=== PATIENT | female | born 1965 | race Asian ===

== ENCOUNTER 2017-10-07 08:32 | Day surgery (SDC) | payer OTHER ==
[~2017-10-07] VITALS: Ht 157.5 cm; Wt 61.6 kg
[~2017-10-07 08:32] MED LIST: ACET500; ACETAMINOPHEN-1 EACH PO; ASPI325 PO; BENADRYL25 MG PO; FAMO20 PO; Gas-X80 MG PO; HYDR1TAB94 PO; METPRE4DP PO
== END 2017-10-07 10:30 | disposition home or self-care (01) ==
LOC: ORSCSDS 08:32
PROVIDERS: Surgery
PROC: 0DJD8ZZ Inspection of Lower Intestinal Tract, Via Natural or Artificial Opening Endoscopic (ICD-10-PCS; principal; 2017-10-07 09:45)
DX: Z12.11 Encounter for screening for malignant neoplasm of colon (principal)
CPT/HCPCS: J7120

== ENCOUNTER → 2021-05-15 | Outpatient (CLI) | payer OTHER ==
[2021-05-19 14:10] LABS: HPV 16 Negative (Negative); HPV 18 Negative (Negative); HPV OTHER HR TYPES Negative (Negative)
== END | disposition home or self-care (01) ==
LOC: LAB SHORT 17:11
PROVIDERS: Internal Medicine
DX: Z12.4 Encounter for screening for malignant neoplasm of cervix (principal)
CPT/HCPCS: 87624; G0145